=== PATIENT | female | born 1990 | race Caucasian/White ===

== ENCOUNTER 2018-03-17 12:23 | Emergency (ER) | payer SELFPAY ==
[~2018-03-17] VITALS: Ht 154.9 cm; Wt 59.1 kg
[~2018-03-17 12:23] MED LIST: NO HOME MEDICATIONS; NORCO 325 MG-51 TAB PO
[2018-03-17 12:26] VITALS: TEMP 98.3
[2018-03-17] MEDS ORDERED: NORCO 325 MG-51 TAB PO (13:25)
[2018-03-17 13:42] VITALS: BP 112/57; PULSE 68
== END 2018-03-17 13:41 | disposition home or self-care (01) ==
LOC: COL.ER 12:23
DX: S86.812A Strain of other muscle(s) and tendon(s) at lower leg level, left leg, initial encounter (principal); Z88.0 Allergy status to penicillin; X50.0XXA Overexertion from strenuous movement or load, initial encounter
CPT/HCPCS: L1846